=== PATIENT | female | born 1975 | race Two or more races ===

== ENCOUNTER 2018-12-25 20:07 | Emergency (ER) | payer BC ==
[2018-12-25] MEDS ORDERED: Lidocaine 2% VISCOUS* 15 ML UDC PO ONE (21:49)
[2018-12-25] MEDS ORDERED: Al Hydrox/Mg Hydrox/Simet LIQ* 30 ML UDC PO ONE (21:49)
[2018-12-25] MEDS ORDERED: Pantoprazole IV* 40 MG IV ONE (21:49)
--- NOTE | 2018-12-25 23:05 | ED ---
GI/ HPI - HPI Summary HPI Summary: 43-year-old female presents with sudden onset of epigastric pain. She states she has a history of ulcers was treated with medication in [place] that resolved pain in 30 minutes. She states shes been having nausea vomiting. States that she had her dinner last night and then developed pain shortly afterwards. She denies any fevers. No chest pain or shortness breath. No cough. No urinary symptoms. No diarrhea or constipation. Has not taking anything for pain. - History of Current Complaint Chief Complaint: EDAbdPain Time Seen by Provider: 12/25/18 21:10 Stated Complaint: ULCER PER PT Pain Intensity: 9 - Allergy/Home Medications Allergies/Adverse Reactions: Allergies Allergy/AdvReac Type Severity Reaction Status Date / Time No Known Allergies Allergy Verified 06/27/15 08:13 PMH/Surg Hx/FS Hx/Imm Hx Endocrine/Hematology History: Denies: Hx Anticoagulant Therapy Respiratory History: Denies: Hx Asthma - Surgical History Surgery Procedure, Year, and Place: Liver trouble as child, states she was hospitalized and had "yellowing fingernails" Infectious Disease History: No Infectious Disease History: Denies: Traveled Outside the [place] in Last 30 Days - Family History Known Family History: Positive: None, Non-Contributory - Social History Alcohol Use: None Substance Use Type: Reports: None Smoking Status (MU): Never Smoked Tobacco Review of Systems Negative: Fever Negative: Chest Pain Negative: Shortness Of Breath Positive: Abdominal Pain, Vomiting, Nausea. Negative: Diarrhea All Other Systems Reviewed And Are Negative: Yes Physical Exam Triage Information Reviewed: Yes Vital Signs On Initial Exam: Initial Vitals Temp Pulse Resp BP Pulse Ox 98.0 F 68 18 143/99 98 12/25/18 20:11 12/25/18 20:11 12/25/18 20:11 12/25/18 20:11 12/25/18 20:11 Vital Signs Reviewed: Yes Appearance: Positive: Well-Appearing Skin: Positive: Warm, Dry Head/Face: Positive: Normal Head/Face Inspection Eyes: Positive: Normal, Conjunctiva Clear ENT: Positive: Pharynx normal Respiratory/Lung Sounds: Positive: Clear to Auscultation, Breath Sounds Present Cardiovascular: Positive: Normal, RRR Abdomen Description: Positive: Soft, Other: - epigastric pain Bowel Sounds: Positive: Present Musculoskeletal: Positive: Normal Neurological: Positive: Normal Psychiatric: Positive: Normal Procedures - Sedation Patient Received Moderate/Deep Sedation with Procedure: No Diagnostics - Vital Signs Vital Signs Temp Pulse Resp BP Pulse Ox 12/25/18 21:43 64 136/79 100 12/25/18 20:11 98.0 F 68 18 143/99 98 - Laboratory Lab Statement: Any lab studies that have been ordered have been reviewed, and results considered in the medical decision making process. Re-Evaluation - Re-Evaluation First Eval Re-Evaluation Time: 23:30 Change: Improved Comment: feels slightly better. again refuses lab work and u/s GIGU Course/Dx - Course Course Of Treatment: 43-year-old female presents with sudden onset of epigastric pain. She states she has a history of ulcers was treated with medication in [place] that resolved pain in 30 minutes. She states shes been having nausea vomiting. States that she had her dinner last night and then developed pain shortly afterwards. She denies any fevers. No chest pain or shortness breath. No cough. No urinary symptoms. No diarrhea or constipation. Has not taking anything for pain. On exam tenderness in the epigastric. Discuss with patient and patient does not want any lab work or ultrasound at this time. Gave her protonix with only slight improvement pain. Offered to do lab work and ultrasound and after lengthy discussion patient decided to wants to do it outpatient. told if develop fevers to return. patient understand and agrees with plan. - Diagnoses Differential Diagnoses - Female: Gall Bladder Disease, Gastritis, Pancreatitis Provider Diagnoses: Epigastric pain Discharge ED - Sign-Out/Discharge Documenting (check all that apply): Patient Departure - Discharge Plan Condition: Good Disposition: HOME Prescriptions: Omeprazole CAP (NF) [Prilosec CAP* 20 MG] 20 mg PO DAILY #14 Patient Education Materials: Diet for Stomach Ulcers and Gastritis (ED), Epigastric Pain (ED) Referrals: Sintia Guillen MD [Primary Care Provider] - Additional Instructions: take omeprazole once a day call primary tomorrow Return to ED if develop any fever, persistent vomiting or any new or worsening symptoms - Billing Disposition and Condition Condition: GOOD Disposition: Home
[2018-12-26 00:28] VITALS: BP 130/74
== END 2018-12-26 00:30 | disposition home or self-care (01) ==
LOC: ED 20:07
DX: R10.13 Epigastric pain (principal); R11.2 Nausea with vomiting, unspecified
CPT/HCPCS: 93005; 96374; 99283; A9270-GY